=== PATIENT | male | born 1975 | race American Indian/Alaskan Native ===

== ENCOUNTER 2017-12-03 12:28 | Emergency (ER) | payer SELFPAY ==
[2017-12-03 12:45] VITALS: BP 145/76
[2017-12-03 13:55] LABS: Bilirubin,Urine NEG (Negative); Blood,Urine NEG (Negative); Color,Urine Yellow (Yellow); Mucus,Urine FEW /HPF; Protein,Urine <15 mg/dL mg/dL (Negative)
--- NOTE | 2017-12-03 14:08 | Emergency Department Report ---
Zuri Doc - Documentation Documentation: Patient is a 42-year-old -[place] male whose presenting with 2 issues. Condition on was that approximately a week ago the patient was moving some wood and had his right thumb bent back. Initially it was quite a great deal of swelling to the hand most of the swelling is now improved however he still is having limited range of motion to the base of the right thumb. Patient states aching sensation as well approximate 6 out of 10. History of hurts worse when he moves. Second issue is that the patient has some left upper quadrant pain. This is mostly after drinking fluids. Patient states that second several seconds after drinking the patient feels some crampiness in the left upper quadrant last up to 5 minutes. Patient states he has no problems eating. Patient occasionally states there is nausea associated. Patient had a urinalysis to rule out kidney issues the urinalysis is within normal limits. X-ray of his right hand will be taken to rule out injury to t bony structures of the right hand. Patient on discharge will be referred to GI for further assessment of the stomach he
[2017-12-03] MEDS ORDERED: NORCO 5/325 ONE (14:33)
[2017-12-03] MEDS ORDERED: NORCO 5/325 PO ONE (14:38)
--- NOTE | 2017-12-03 14:42 | Emergency Department Report ---
ED General Adult HPI - General Chief complaint: Extremity Injury, Upper Stated complaint: KIDNEY INFECTION AND R HAND INJURY Time Seen by Provider: 12/03/17 13:56 Source: patient, family Mode of arrival: Ambulatory Limitations: No Limitations - History of Present Illness Initial comments: Patient is a 42-year-old -Spanish male whose presenting with 2 issues. Condition on was that approximately a week ago the patient was moving some wood and had his right thumb bent back. Initially it was quite a great deal of swelling to the hand most of the swelling is now improved however he still is having limited range of motion to the base of the right thumb. Patient states aching sensation as well approximate 6 out of 10. History of hurts worse when he moves. Second issue is that the patient has some left upper quadrant pain. This is mostly after drinking fluids. Patient states that second several seconds after drinking the patient feels some crampiness in the left upper quadrant last up to 5 minutes. Patient states he has no problems eating. Patient occasionally states there is nausea associated. MD Complaint: right hand injury with pain to thumb and swelling, abdominal symptoms Onset/Timin -: week(s) Location: abdomen, right, upper extremity Radiation: non-radiation Severity scale (0 -10): 10 Quality: aching Consistency: constant Improves with: immobilization, rest Worsens with: movement (right hand pain) Associated Symptoms: other (abdominal pain , right kidney area pain 3 weeks. Pain is sharp and 8/10. Took antibiotic at home. Pain is intermittent and happens when he drinks water but not when he eats solid food). denies: confusion, chest pain, cough, diaphoresis, fever/chills, headaches, loss of appetite, malaise, nausea/vomiting, rash, seizure Treatments Prior to Arrival: other ([id number]-[id number] pain medication.) - Related Data Previous Rx's Medication Instructions Recorded Last Taken Type Naproxen [Naprosyn] 500 mg PO BID #20 tablet 07/31/16 Unknown Rx traMADol [Ultram 50 MG tab] 50 mg PO Q6HR PRN #15 tablet 07/31/16 Unknown Rx HYDROcodone/APAP 5-325 [[place] 1 each PO Q6HR PRN #12 tablet 12/03/17 Unknown Rx 5/325] Ibuprofen [Motrin] 600 mg PO Q8H PRN #15 tablet 12/03/17 Unknown Rx Allergies Allergy/AdvReac Type Severity Reaction Status Date / Time No Known Allergies Allergy Verified 12/03/17 12:48 ED Review of Systems ROS: Stated complaint: KIDNEY INFECTION AND R HAND INJURY Other details as noted in HPI Constitutional: denies: chills, fever Eyes: denies: eye pain, eye discharge ENT: denies: ear pain, throat pain Respiratory: denies: cough, shortness of breath, SOB with exertion, SOB at rest , wheezing Cardiovascular: denies: chest pain, palpitations, edema, syncope Gastrointestinal: abdominal pain, other (pain to left kidney area only with drinking water). denies: nausea, vomiting, diarrhea Genitourinary: denies: urgency, dysuria, frequency, hematuria, discharge, testicular pain, testicular mass Musculoskeletal: joint swelling, arthralgia. denies: back pain, myalgia Skin: denies: rash, lesions Neurological: denies: headache, weakness, numbness, paresthesias Hematological/Lymphatic: easy bleeding. denies: easy bruising ED Past Medical Hx - Past Medical History Previous Medical History?: No - Surgical History Past Surgical History?: No - Family History Family history: hypertension - Social History Smoking Status: Never Smoker Substance Use Type: None - Medications Home Medications: Home Medications Medication Instructions Recorded Confirmed Last Taken Type Naproxen [Naprosyn] 500 mg PO BID #20 tablet 07/31/16 Unknown Rx traMADol [Ultram 50 MG tab] 50 mg PO Q6HR PRN #15 tablet 07/31/16 Unknown Rx HYDROcodone/APAP 5-325 [[place] 1 each PO Q6HR PRN #12 tablet 12/03/17 Unknown Rx 5/325] Ibuprofen [Motrin] 600 mg PO Q8H PRN #15 tablet 12/03/17 Unknown Rx ED Physical Exam - General Limitations: No Limitations General appearance: alert, in no apparent distress - Head Head exam: Present: atraumatic, normocephalic, normal inspection - Eye Eye exam: Present: normal appearance, PERRL, EOMI Pupils: Present: normal accommodation - ENT ENT exam: Present: normal exam, normal orophraynx, mucous membranes moist - Neck Neck exam: Present: normal inspection, full ROM. Absent: tenderness, meningismus, lymphadenopathy - Respiratory Respiratory exam: Present: normal lung sounds bilaterally. Absent: respiratory distress, chest wall tenderness - Cardiovascular Cardiovascular Exam: Present: regular rate, normal rhythm, normal heart sounds. Absent: systolic murmur, diastolic murmur - GI/Abdominal GI/Abdominal exam: Present: soft, normal bowel sounds. Absent: distended, tenderness, guarding, rebound, rigid, organomegaly, mass, bruit, pulsatile mass , hernia - Extremities Exam Extremities exam: Present: normal inspection, full ROM, normal capillary refill , joint swelling (right hand at and 1st metacarpal bone area), other (no clubbing or cyanosis. No edema noted. Patient with positive swelling to right hand secondary to injury. Tender to palpate. +2 pulses radial and ulnar area. No neurovascular compromise to extremities). Absent: tenderness, pedal edema , calf tenderness - Expanded Upper Extremity Exam Right General: Absent: normal inspection, laceration, abrasion, nail injury (#), foreign body, amputation Shoulder Exam: Present: normal inspection, full ROM. Absent: tenderness, swelling, abrasion, laceration, ecchymosis, deformity, erythema, tenderness over AC joint Elbow exam: Present: normal inspection, full ROM. Absent: tenderness, swelling , abrasion, laceration, ecchymosis, deformity, crepidus, dislocation, erythema, effusion, pain w/ pronation/supination, tenderness over radial head Forearm Wrist exam: Present: normal inspection, full ROM. Absent: tenderness, swelling, abrasion, laceration, ecchymosis, deformity, crepidus, dislocation, erythema, tenderness over anatomical snuff box, pain with axial thumb loading Hand Wrist exam: Present: tenderness (right hand including), swelling (right hand including right thumb). Absent: normal inspection, full ROM (Limited range of motion to right hand especially to thumb due to swelling, pain.), abrasion, laceration, ecchymosis, deformity, crepidus, dislocation, erythema, amputation, nail avulsion, subungual hematoma Neuro motor exam: Present: wrist extension intact, thumb opposition intact, thumb IP flexion intact, fingers 2-5 abduction intact, other (Limited range of motion to right thumb). Absent: thumb adduction intact Neurosensory exam: Present: 2-point discrimination, radial nerve intact, ulnar nerve intact, median nerve intact Vascular: Present: normal capillary refill, radial pulse, brachial pulse, ulnar pulse. Absent: vascular compromise, Pallo, pulse deficit radial art, pulse deficit ulnar art, pulse deficit brachial art - Back Exam Back exam: Present: normal inspection, full ROM. Absent: tenderness, CVA tenderness (R), CVA tenderness (L), muscle spasm, paraspinal tenderness, vertebral tenderness, rash noted - Neurological Exam Neurological exam: Present: alert, oriented X3, normal gait, reflexes normal. Absent: motor sensory deficit - Psychiatric Psychiatric exam: Present: normal affect, normal mood - Skin Skin exam: Present: warm, dry, intact, normal color. Absent: rash ED Course Vital Signs 12/03/17 12/03/17 12:39 14:40 Temperature 98.2 F Pulse Rate 65 Respiratory 18 16 Rate Blood Pressure 145/76 O2 Sat by Pulse 99 Oximetry - Reevaluation(s) Reevaluation #1: 12/03/17 15:11 Patient given hydrocodone 5/325 mg 1 tablet for pain which relieved his pain. 12/03/17 15:28 Reevaluation #2: 12/03/17 15:27 Patient was fractured to base of first metacarpal bone. See procedure note for OCL splint and patient report this pain is better. - Orthopedic Splinting/Casting Injury #1 Side: right Upper Extremity Injury Location: hand Upper Extremity Immobilizer: thumb spica Additional Comments: Status post thumb spica right hand patient with good color, sensation, movement and temperature to right hand. Pulses 2+ and bounding ED Medical Decision Making - Lab Data Lab Results 12/03/17 Range/Units 13:03 Urine Color Yellow (Yellow) Urine Turbidity Clear (Clear) Urine pH 6.0 (5.0-7.0) Ur Specific [place] 1.027 (1.003-1.030) Urine Protein <15 mg/dl (Negative) mg/dL Urine Glucose (UA) Neg (Negative) mg/dL Urine Ketones Neg (Negative) mg/dL Urine Blood Neg (Negative) Urine Nitrite Neg (Negative) Urine Bilirubin Neg (Negative) Urine Urobilinogen 2.0 (<2.0) mg/dL Ur Leukocyte Esterase Neg (Negative) Urine WBC (Auto) 1.0 (0.0-6.0) /HPF Urine RBC (Auto) 4.0 (0.0-6.0) /HPF U Epithel Cells (Auto) < 1.0 (0-13.0) /HPF Urine Mucus Few /HPF - Radiology Data Radiology results: report reviewed X-ray three-view right hand was dictated by radiologist and reported myself. Also films and examined. See report below Patient: MITESH CHICAS MR#: [id number] : 1975 Acct:[id number] Age/Sex: 42 / M ADM Date: 12/03/17 Loc: ED Attending Dr: Ordering Physician: LAMAR MARSHALL MD Date of Service: 12/03/17 Procedure(s): XR hand 3+V RT Accession Number(s): [id number] cc: LAMAR MARSHALL MD Fluoro Time In Minutes: Right hand: Trauma, pain. There is a comminuted fracture of the base of the first metacarpal with several fragments slightly fragments one of which is slightly offset. The bone doesn't however appear aligned and the joint. There is associated swelling. The remainder of the hand appears unremarkable. Impression: First metacarpal fracture. Transcribed By: [facility] Dictated By: CHERYL MATHIS MD Electronically Authenticated By: CHERYL MATHIS MD Signed Date/Time: 12/03/171455 DD/ 53 TD/TT: 12/03/171455 - Medical Decision Making ED course: This is a 42-year-old male here reports that he's had injury to his right hand with complaints of pain to his right thumb which he says is getting better but still difficulty moving right thumb. He said he injured his hand while lifting a log about a week ago. He is also complaining and IVs have been pain to the left kidney area when he drinks water 3 weeks but he is able to be without any difficulties. Denies any nausea or vomiting. Pt Seen and examined by myself. He'll urinalysis which was normal. Abdominal exam normal. Right hand exam normal except he has difficulty moving his right thumb especially with flexion. He is unable to use his thumb to touch fingers of right hand. He has tenderness to palpate dorsally and swelling to right hand extending down to first metacarpal bone area. X-ray 3 view right hands was dictated by radiologist and report reviewed by myself and showed fracture distal first metacarpal bone. Results of urinalysis and x-ray report given to patient and he voiced understanding. Pain is controlled with pain medication. See Procedure note for detail and splinted. A/P 1: Fracture 1st Metacarpal bone distally-OCL thumb spica and referral to orthopedic. She has good color, sensation, movement and temperature to fingers of right hand status post splint placement. 2: Arthralgia right hand status post injury-patient given Percocet 5/325 one tablet by mouth which relieved his pain and will be discharged home on B[place]ank and Motrin. 3: Intermittent abdominal pain-abdominal exam is normal. Urinalysis is normal. will Referred to GI Patient educated on medication, diagnosis, Rice therapy, splint care. He voiced understanding. Referral orthopedic doctor and GI doctor Patient is stable and discharged home in stable condition to follow up with orthopedic and GI doctor in 2-3 days. His vital signs are stable and he is not having any pain since he came in emergency room to his stomach. Pain is better to his right hand after given Percocet. Patient said he is feeling better. I discussed with him that if his symptoms worsens to return to the emergency room and also to read discharge instructions on splint care and he voiced understanding. Patient discharged home with his family in stable condition with prescription for [place], and Motrin. - Differential Diagnosis fracture, dislocation, contusion, arthralgia Critical care attestation.: If time is entered above; I have spent that time in minutes in the direct care of this critically ill patient, excluding procedure time. ED Disposition Clinical Impression: Pain, joint, hand, right, Abdominal pain in male Displaced fracture of first metacarpal bone of right hand Qualifiers: Encounter type: initial encounter Fracture type: closed Metacarpal location: base Fracture morphology: unspecified fracture morphology Qualified Code(s): S62.231A - Other displaced fracture of base of first metacarpal bone, right hand , initial encounter for closed fracture Disposition: DC-01 TO HOME OR SELFCARE Is pt being admited?: No Does the pt Need Aspirin: No Condition: Stable Instructions: Abdominal Pain (ED), Arthralgia (ED), RICE Therapy (ED), Hand Fracture (ED), Splint Care (ED) Additional Instructions: Please see referral for orthopedic doctor for right hand fracture and also for GI doctor for episodic abdominal pain Referral on splint care and Rice therapy Her into the emergency room if his symptoms worsen Take [place] for severe pain but presented to operate machinery while taking this medication as it causes drowsiness Take Motrin for mild pain and make sure she take this medication with food Prescriptions: HYDROcodone/APAP 5-325 [[place] 5/325] 1 each PO Q6HR PRN #12 tablet PRN Reason: severe pain Ibuprofen [Motrin] 600 mg PO Q8H PRN #15 tablet PRN Reason: Pain Referrals: [facility] [Provider Group] - 2-3 Days PRIMARY MD KAY [Primary Care Provider] - 12/04/17 CHERYL KAT MD [Staff Physician] - 2-3 Days Forms: Work/School Release Form(ED)
--- NOTE | 2017-12-03 15:19 | XRay Report ---
Right hand: Trauma, pain. There is a comminuted fracture of the base of the first metacarpal with several fragments slightly fragments one of which is slightly offset. The bone doesn't however appear aligned and the joint. There is associated swelling. The remainder of the hand appears unremarkable. Impression: First metacarpal fracture.
== END 2017-12-03 16:24 | disposition home or self-care (01) ==
LOC: ED 12:28
DX: S62.231A Other displaced fracture of base of first metacarpal bone, right hand, initial encounter for closed fracture (principal); R10.12 Left upper quadrant pain; I10 Essential (primary) hypertension; X50.1XXA Overexertion from prolonged static or awkward postures, initial encounter; Y93.B2 Activity, push-ups, pull-ups, sit-ups; Y99.8 Other external cause status; Y92.89 Other specified places as the place of occurrence of the external cause
CPT/HCPCS: 81001